=== PATIENT | male | born 2000 | race Caucasian/White ===

== ENCOUNTER 2023-10-29 14:45 | Emergency (ER) | payer BC, SELFPAY ==
[2023-10-29 14:48] VITALS: BP 147/98; PULSE 79; RESP 16; TEMP 37.1; O2SAT 98
--- NOTE | 2023-10-29 14:56 | ED.GENADUL_ITS ---
Discharge Plan Disposition Patient Disposition: Home Discharge Details Clinical Impression: Submandibular sialolithiasis Primary Care Provider: Unknown,Unknown ED Provider: Beau Andrade Home Meds and New Rx's Prescriptions: No Action No Known Home Meds Discharge Instructions Additional Instructions: You were seen in the emergency department for your neck swelling. You most likely have a stone in one of your salivary glands, a sialolithiasis. Please make sure you stay very well-hydrated by drinking one 8 ounce glass of water every hour while you are awake. Please use topical heat packs. Please massage the gland as you are shown on the inside of your neck. Please also use sour candies or lemonade to stimulate the gland. Smoking is a risk factor for developing sialolithiasis send try to cut back on smoking. If you develop fevers or the gland stays swollen and does not return to normal size please return to the emergency department. For your pain please take medications as follows: 1. Take acetaminophen (Tylenol), 1,000 mg (two 500 mg tabs) every 6 hours [2. Take ibuprofen (Advil), 400 mg every 6 hours.] Discharge Data Discharge Date/Time-TO BE ENTERED AT DEPARTURE: 10/29/23 15:50 HPI General Date/Time Provider Initiated Documentation: 10/29/23 14:55 . HPI Narrative: MDM This is an overall very well-appearing normothermic and not tachycardic 23-year-old male with left sided transient neck swelling most consistent with left-sided submandibular sialolithiasis. No brawny edema submentally to suggest Jef's angina. Good range of motion in neck so I am not suspicious for retropharyngeal abscess. Uvula midline so doubt peritonsillar abscess. Based on the patient's age and his sudden onset symptoms today I am not concerned for thyroglossal duct cyst. No pain out of proportion to suggest necrotizing soft tissue infection. Not HIV positive so doubt acute necrotizing ulcerative gingivitis. No dental pain to suggest odontogenic infection. No lip swelling to suggest angioedema. I considered a viral parotitis but given fluctuating symptoms around mealtimes I felt that this was less likely. Patient had had no fevers to suggest suppurative parotitis so I did not feel he required antibiotics. He does have risk factors for submandibular sialolithiasis based on his tobacco use. Intraorally I was able to visualize an area that did appear consistent with a stone. I attempted to milk the stone. The stone did not move. I took 1 attempt at grasping the stone with tweezers but was unable to remove the stone. Patient tolerated this attempt well. No complications. No intraoral blood. I advised patient to attempt conservative treatment given stone without infection. We discussed adequate hydration, topical heat packs, massaging the gland, and sialagogues using sour candies and lemonade to stimulate gland. I advised him to return if he develop fevers swelling that did not resolve or if he noticed any skin changes on his neck. He understood his return indications and was discharged with empiric trial of expectant outpatient management. HPI This is a previously healthy 23-year-old male up-to-date with immunizations arrived to the emergency department via private vehicle with his girlfriend after noticing some swelling to the left side of his neck after eating breakfast this morning. Patient reports waking in his usual state of health. He is a daily tobacco user and occasionally smokes marijuana. He denies tobacco use. He said that he developed left-sided neck swelling after eating but that it steadily improved throughout the morning so he did not think much of it. Subsequently at 2 PM this afternoon he went to have lunch and the swelling returned. No prior history of similar symptoms. No shortness of breath. No fevers no nausea no vomiting. No dental pain. Patient takes no routine medications. Exam General: Well-appearing in no acute distress speaking in complete sentences. Head: Normocephalic, atraumatic. Eye: Extraocular eye movements intact. No conjunctival injection. No scleral icterus. Ear, nose, mouth, throat: Intraorally at the exit of the sublingual salivary gland on the left there does appear to be a small stone. Floor of mouth feels soft. No percussive tenderness. Patient handling secretions. Uvula midline. Good range of motion in neck. Neck: On the left side of the patient's neck there is an approximately 2 cm in diameter circumferential area of swelling and tenderness just below the angle of the mandible. No nuchal rigidity. No fluctuance. No erythema on skin. No brawny edema submentally. Cardiovascular: Well-perfused distal extremities. Respiratory: Nonlabored respiration. Gastrointestinal: Nondistended abdomen. Musculoskeletal: No edema. Moving all 4 extremities spontaneously. Skin: Normal for age and race, grossly normal temperature and turgor. No acute rash. Neurologic: Alert and appropriate, no apparent acute deficits. Psychiatric: Mood and manner are appropriate. Grooming and personal hygiene are appropriate. Related Data Home Medications Medication Instructions Recorded Confirmed Unknown [No Known Home Meds] 10/29/23 10/29/23 Allergies Allergy/AdvReac Type Severity Reaction Status Date / Time No Known Allergies Allergy Unverified 10/29/23 15:32 General Stated Complaint: DentalOral FARIBA: 4 Course Vital Signs Vital signs: Vital Signs Temperature 37.1 C 10/29/23 14:48 Pulse 79 10/29/23 14:48 Respiratory Rate 16 10/29/23 14:48 Blood Pressure 147/98 H 10/29/23 14:48 Pulse Oximetry 98 10/29/23 14:48 Temperature 37.1 C 10/29/23 14:48 Temperature Source Tympanic 10/29/23 14:48 Pulse 79 10/29/23 14:48 Respiratory Rate 16 10/29/23 14:48 Blood Pressure 147/98 H 10/29/23 14:48 Blood Pressure Position Sitting 10/29/23 14:48 Pulse Oximetry 98 10/29/23 14:48 Oxygen Delivery Method Room Air 10/29/23 14:48 Oxygen Flow Rate 0 10/29/23 14:48 Pain Level 0 10/29/23 14:48 Medical Decision Making Quality:SDOH Health Related Social Needs: No Data to Display PFSH All Active Problems (Updated 10/29/23 @ 15:37 by Beau Andrade MD) Submandibular sialolithiasis (Acute) Social History Smoking/Tobacco Use Status: Current every day Tobacco Type: cigars and e- cigarettes Smoking risk assessment performed?: Yes Alcohol Intake: former Drug use: Daily Substance use type: marijuana Housing: apartment Do you feel safe at home: Yes Do you feel safe in your relationship?: Yes POCUS Exam (ED) Limited Soft Tissue Exam DATE OF EXAM: 10/29/23 TIME OF EXAM: 15:10 PROVIDER THAT PERFORMED THE STUDY: Beau Andrade IS THIS A REPEAT EXAM DURING THIS ENCOUNTER: No LOCATION OF EXAM: Neck/left side REASON FOR EXAM: Swelling Exam Complete DIFFERENTIAL DIAGNOSES: No obvious signs of sialolithiasis
== END 2023-10-29 15:50 | disposition home or self-care (01) ==
PROVIDERS: Emergency Provider Emergency Medicine
DX: K11.5 Sialolithiasis (principal); F17.290 Nicotine dependence, other tobacco product, uncomplicated
CPT/HCPCS: 76536; 99284; 99283